=== PATIENT | female | born 1995 | race Hispanic/Latino ===

== ENCOUNTER 2020-08-12 17:51 | Day surgery (SDC) | payer OTHER ==
[2020-08-12 18:27] VITALS: BMI 39.1
[2020-08-12] MEDS ORDERED: hydrALAZINE 20 MG/ML VIAL SLOW IVP PRN (19:48)
== END 2020-08-12 21:13 | disposition home or self-care (01) ==
LOC: CSHLD/OP 17:51
PROVIDERS: ATTEND Family Medicine
DX: O99.891 Other specified diseases and conditions complicating pregnancy (principal); R03.0 Elevated blood-pressure reading, without diagnosis of hypertension; Z3A.39 39 weeks gestation of pregnancy
CPT/HCPCS: 36416; 99283